=== PATIENT | female | born 1985 | race Two or more races ===

== ENCOUNTER 2021-04-12 14:43 | Outpatient (CLI) | payer OTHER | END 2021-04-12 15:25 | disposition home or self-care (01) | LOC: NST 14:43 | PROVIDERS: ATTEND Obstetrics & Gynecology Maternal & Fetal Medicine | DX: Z34.83 Encounter for supervision of other normal pregnancy, third trimester (principal) ==

== ENCOUNTER 2021-05-29 14:55 | Outpatient (CLI) | payer OTHER | END 2021-05-29 15:30 | disposition home or self-care (01) | LOC: NST 14:55 | PROVIDERS: ATTEND Obstetrics & Gynecology | DX: Z34.83 Encounter for supervision of other normal pregnancy, third trimester (principal) ==